=== PATIENT | male | born 1960 ===

== ENCOUNTER 2018-08-24 10:01 | Emergency (ER) | payer MEDICAID ==
[2018-08-24 10:01] VITALS: BMI 22.8
[2018-08-24 10:17] VITALS: TEMP 97.6
[2018-08-24 10:57] LABS: BASO % 0.5 % (0.0-2.0); EOS # 0.2 K/uL (0.0-0.7); EOS % 1.8 % (0.0-4.0); HEMOGLOBIN 16.4 g/dL (12.0-18.0); LYMPH # 4.5 K/uL (1.0-4.3); LYMPH % 45.6 % (20.0-40.0); MEAN CELL VOLUME 86.2 fL (80.0-94.0); MEAN CORPUSCULAR HEMOGLOBIN 29.7 pg (27.0-31.0); MEAN CORPUSCULAR HGB CONC 34.5 g/dL (33.0-37.0); MEAN PLATELET VOLUME 8.9 fL (7.2-11.7); MONO # 0.7 K/uL (0.0-0.8); MONO % 6.8 % (0.0-10.0); NEUT # 4.5 K/uL (1.8-7.0); NEUT % 45.3 % (50.0-75.0); NRBC % 0.1 % (0.0-2.0); RBC 5.51 Mil/uL (4.40-5.90); RED CELL DISTRIBUTION WIDTH 13.2 % (11.5-14.5); WHITE BLOOD COUNT 9.9 K/uL (4.8-10.8)
[2018-08-24 11:11] LABS: ALB/GLOB RATIO 1.3 (1.0-2.1); ALBUMIN 4.4 g/dL (3.5-5.0); ALT/SGPT 22 U/L (21-72); AMYLASE 198 U/L (30-110); AST/SGOT 20 U/L (17-59); BLOOD UREA NITROGEN 17 mg/dL (9-20); CALCIUM 9.6 mg/dl (8.6-10.4); GFR NON-AFRICAN AMERICAN > 60; LIPASE 662 U/L (23-300)
--- NOTE | 2018-08-24 12:45 | C.PDOC ---
History Of Present Illness 57 y/o male, with PMHx of diabetes, is sent to ED by Dr. Milton for abnormal labs to rule out pancreatitis. Pt was seen by PMD 2 days ago where he had blood work with abnormal results. Pt denies any abdominal pain, n/v/d, GI bleeding, constipation, urinary symptoms, back pain, or fever. Time Seen by Provider: 08/24/18 10:47 Chief Complaint (Nursing): Abdominal Pain History Per: Patient History/Exam Limitations: no limitations Onset/Duration Of Symptoms: Gradual Current Symptoms Are (Timing): Gone Pain Scale Rating Of: 0 Radiation Of Pain To:: None Exacerbating Factors: None Recent travel outside of the [place]: No Additional History Per: Patient Past Medical History Reviewed: Historical Data, Nursing Documentation, Vital Signs Vital Signs: Last Vital Signs Temp 97.6 F 08/24/18 10:12 Pulse 98 H 08/24/18 10:12 Resp 19 08/24/18 10:12 BP 131/84 08/24/18 10:12 Pulse Ox 100 08/24/18 10:12 - Medical History PMH: Diabetes Family History: States: Unknown Family Hx - Social History Hx Alcohol Use: No Hx Substance Use: No - Immunization History Hx Tetanus Toxoid Vaccination: No Hx Influenza Vaccination: Yes (2018) Hx Pneumococcal Vaccination: No Review Of Systems Except As Marked, All Systems Reviewed And Found Negative. Constitutional: Negative for: Fever, Chills Eyes: Negative for: Pain, Vision Change ENT: Negative for: Ear Pain Cardiovascular: Negative for: Chest Pain Respiratory: Negative for: Shortness of Breath Gastrointestinal: Negative for: Nausea, Vomiting, Abdominal Pain, Diarrhea Genitourinary: Negative for: Dysuria, Frequency, Hematuria Musculoskeletal: Negative for: Neck Pain, Back Pain Neurological: Negative for: Weakness, Numbness Physical Exam - Physical Exam Appears: Non-toxic, No Acute Distress Skin: Normal Color, Warm, Dry, No Rash Head: Atraumatic, Normacephalic Eye(s): bilateral: Normal Inspection Oral Mucosa: Moist Throat: No Erythema, No Exudate Neck: Normal ROM, Supple Chest: Symmetrical Cardiovascular: Rhythm Regular, No Friction Rub, No Murmur Respiratory: Normal Breath Sounds, No Rales, No Rhonchi, No Wheezing Gastrointestinal/Abdominal: Soft, No Tenderness, No Distention, No Guarding, No Rebound Back: No CVA Tenderness Extremity: Normal ROM, No Pedal Edema Neurological/Psych: Oriented x3, Normal Speech, Normal Motor Gait: Steady ED Course And Treatment - Laboratory Results Result Diagrams: 08/24/18 10:47 08/24/18 10:47 O2 Sat by Pulse Oximetry: 100 (RA) Pulse Ox Interpretation: Normal Medical Decision Making Medical Decision Making: Plan: * Blood work * Urinalysis * Abd & Pelvis CT Patient reports that he has no nausea, vomiting or any pain at this time. Patient was instructed that his Lipase is elevated at 660, but the CT scan is negative for acute pancreatitis. Patient was informed that he has cholelithiasis which may affect his Lipase and was instructed to follow up with the next week. Lungs are CTA, heart is RRR, abdomen is soft, non-tender and tolerating PO well. Follow up with the medical doctor within 1-2 days. return if worsened. Disposition - Disposition Referrals: Yelena Garza MD [Non-Staff] - Disposition: HOME/ ROUTINE Disposition Time: 12:44 Condition: STABLE Additional Instructions: Follow up with the medical doctor within 1-2 days. return if worsened. Prescriptions: Famotidine [Pepcid] 20 mg PO BID #20 tab Ibuprofen [Motrin] 600 mg PO TID #21 tab Instructions: Gallstones (DC) Forms: [facility] (Scottish), Work Excuse - Clinical Impression Clinical Impression: Cholelithiasis - PA / HAULAGE ENGINE OPERATOR / Resident Statement MD/DO has reviewed & agrees with the documentation as recorded. - Scribe Statement The provider has reviewed the documentation as recorded by the Scribe KP All medical record entries made by the Scribe were at my direction and personally dictated by me. I have reviewed the chart and agree that the record accurately reflects my personal performance of the history, physical exam, medical decision making, and the department course for this patient. I have also personally directed, reviewed, and agree with the discharge instructions and disposition.
--- NOTE | 2018-08-24 12:45 | CT ---
Date of service: 08/24/2018 PROCEDURE: CT Abdomen and Pelvis without intravenous contrast HISTORY: elevated lipase r/o pancreatitis COMPARISON: None. TECHNIQUE: CT scan of the abdomen and pelvis was performed without administration of intravenous contrast. Oral contrast was not administered. Coronal and sagittal reformatted images were obtained. . Radiation dose: Total exam DLP = 493.60 mGy-cm. This CT exam was performed using one or more of the following dose reduction techniques: Automated exposure control, adjustment of the mA and/or kV according to patient size, and/or use of iterative reconstruction technique. FINDINGS: LOWER THORAX: There is linear atelectasis/scarring in the left lung base. Otherwise, the visualized lungs are clear. LIVER: Normal in size. No intrahepatic ductal dilatation. GALLBLADDER AND BILE DUCTS: Few small calcified gallstones. No biliary dilatation PANCREAS: Normal in size. No ductal dilatation. No evidence for peripancreatic edema or fat stranding. No evidence for pancreatic calcifications. SPLEEN: Normal in size. ADRENALS: Normal in size. No discrete nodule. KIDNEYS AND URETERS: Normal in size without nephrolithiasis. No hydronephrosis. VASCULATURE: No aortic aneurysm. BOWEL: There are fluid-filled mildly prominent small bowel loops. There is fecalization of distal small bowel contents. There is large amount of stool in the colon. No bowel dilatation or obstruction. APPENDIX: Normal appendix. PERITONEUM: No free fluid. No free air. LYMPH NODES: No enlarged lymph nodes. BLADDER: Decompressed. REPRODUCTIVE: There is mild enlargement of the prostate gland. Please correlate with PSA levels. BONES: No acute fracture. There is diffuse bone demineralization and multilevel degenerative changes in the spine. OTHER FINDINGS: None. IMPRESSION: No CT evidence for acute pancreatitis. Constipation and fecal stasis in the distal small bowel loops. No bowel obstruction. Fluid-filled mildly prominent small bowel loops which could be related to enteritis. Cholelithiasis.
[2018-08-24 13:10] VITALS: BP 129/81; PULSE 70; RESP 16
[2018-08-24 16:20] VITALS: O2SAT 100
== END 2018-08-24 13:09 | disposition home or self-care (01) ==
LOC: C.ER 10:01
DX: K80.20 Calculus of gallbladder without cholecystitis without obstruction (principal); E11.9 Type 2 diabetes mellitus without complications

== ENCOUNTER 2018-12-30 12:25 | Emergency (ER) | payer MEDICAID ==
[2018-12-30 12:25] VITALS: BMI 22.8
[2018-12-30 12:33] VITALS: BP 134/88; PULSE 84; RESP 20; TEMP 97.7; O2SAT 100
[2018-12-30] MEDS ORDERED: Amoxicillin-Clav 875-125 mg Tab PO STA (13:10)
[2018-12-30] MEDS ORDERED: Tdap Vaccine 0.5 ml Vial (10-64 yrs) IM ONE ×2 (13:10→13:33)
--- NOTE | 2018-12-30 13:19 | C.PDOC ---
History Of Present Illness 58 y/o male pt presents to the ER c/o swelling and redness to his right leg x3 days ago. Pt reports his dog scratched him which caused the swelling and the redness. Pt is not UTD on his tetanus shot. Pt denies fever and chills. Time Seen by Provider: 12/30/18 12:48 Chief Complaint (Nursing): Lower Extremity Problem/Injury History Per: Patient History/Exam Limitations: no limitations Onset/Duration Of Symptoms: Days (x3) Current Symptoms Are (Timing): Still Present Past Medical History Reviewed: Historical Data, Nursing Documentation, Vital Signs Vital Signs: Last Vital Signs Temp 97.7 F 12/30/18 12:31 Pulse 84 12/30/18 12:31 Resp 20 12/30/18 12:31 BP 134/88 12/30/18 12:31 Pulse Ox 100 12/30/18 12:31 - Medical History PMH: Diabetes Family History: States: Unknown Family Hx - Social History Hx Alcohol Use: Yes Hx Substance Use: No - Immunization History Hx Tetanus Toxoid Vaccination: No Hx Influenza Vaccination: Yes (2018) Hx Pneumococcal Vaccination: No Review Of Systems Except As Marked, All Systems Reviewed And Found Negative. Skin: Positive for: Other (redness to right leg ) Physical Exam - Physical Exam Appears: Non-toxic, No Acute Distress Skin: Warm, Dry, No Rash Head: Atraumatic, Normacephalic Eye(s): bilateral: Normal Inspection, PERRL, EOMI Nose: Normal Oral Mucosa: Moist Chest: Symmetrical Cardiovascular: Rhythm Regular Respiratory: Normal Breath Sounds, No Rales, No Rhonchi, No Wheezing Gastrointestinal/Abdominal: Normal Exam, Soft, No Tenderness Extremity: Other (moderately erythema to right distal tib/fib region with distal swelling; no crepitous; no gross swelling ) Pulses: Left Dorsalis Pedis: Normal Neurological/Psych: Oriented x3, Normal Speech, Normal Cognition, Normal Motor, Normal Sensation ED Course And Treatment O2 Sat by Pulse Oximetry: 100 (RA) Pulse Ox Interpretation: Normal Medical Decision Making Medical Decision Making: Assessment: cellulitis Plans: -- glucose POC -- tetanus -- augmentin Reassess: pt will ve dc home and advised to visit pmd in 2 days Disposition Counseled Patient/Family Regarding: Studies Performed, Diagnosis, Need For Followup, Rx Given - Disposition Referrals: Yelena Garza MD [Non-Staff] - Disposition: HOME/ ROUTINE Disposition Time: 13:40 Condition: STABLE Additional Instructions: follow up with your doctor within 2 days call to make an appointment take medication as prescribed return to ER if symptoms worsens or progress Prescriptions: Amoxicillin/Clavulanate [Augmentin 875 MG-125 MG] 1 tab PO BID #20 tab Instructions: Cellulitis (Skin Infection), Adult (DC) Forms: [facility] (Slovenian), General Discharge Instructions - Clinical Impression Clinical Impression: Cellulitis - Scribe Statement The provider has reviewed the documentation as recorded by the Jimboibe Kumar Do Provider Attestation: All medical record entries made by the Scribe were at my direction and personally dictated by me. I have reviewed the chart and agree that the record accurately reflects my personal performance of the history, physical exam, medical decision making, and the department course for this patient. I have also personally directed, reviewed, and agree with the discharge instructions and disposition.
[2018-12-30] MEDS ORDERED: Amoxicillin-Clav 875-125 mg Tab PO ONE (13:33)
== END 2018-12-30 13:45 | disposition home or self-care (01) ==
LOC: C.ER 12:25
DX: L03.115 Cellulitis of right lower limb (principal)

== ENCOUNTER 2019-01-21 06:55 | Outpatient (CLI) | payer MEDICAID | END 2019-01-21 06:56 | disposition home or self-care (01) | LOC: C.LAB 06:55 | DX: S46.812A Strain of other muscles, fascia and tendons at shoulder and upper arm level, left arm, initial encounter (principal); S43.432A Superior glenoid labrum lesion of left shoulder, initial encounter; M75.52 Bursitis of left shoulder; M75.42 Impingement syndrome of left shoulder; M75.22 Bicipital tendinitis, left shoulder ==